=== PATIENT | male | born 1995 | race Caucasian/White ===

== ENCOUNTER 2016-09-04 16:26 | Emergency (ER) | payer OTHER, BC | END 2016-09-04 19:07 | disposition home or self-care (01) | LOC: ER 16:26 | DX: S20.01XA Contusion of right breast, initial encounter (principal); S40.212A Abrasion of left shoulder, initial encounter; S80.02XA Contusion of left knee, initial encounter; Z88.8 Allergy status to other drugs, medicaments and biological substances; V29.40XA Motorcycle driver injured in collision with unspecified motor vehicles in traffic accident, initial encounter | CPT/HCPCS: 71250; 74176; 99284; A9270-GY ==